=== PATIENT | male | born 1945 | race Caucasian/White ===

== ENCOUNTER 2023-04-21 18:31 | Emergency (ER) | payer MEDICARE, SELFPAY ==
--- NOTE | ~2023-04-21 | XR_ITS ---
EXAM: XR shoulder RT min 2V DATE: 04/21/2023 19:25 HISTORY: NKI, GEN PAIN . COMPARISON: None available. FINDINGS: Normal mineralization. No fracture or dislocation. No lytic or blastic lesion. Mild degene rative change at the AC joint. Moderate degenerative change of the glenohumeral joint. Significant ac romial enthesopathy. Subacromial narrowing. No erosion or periosteal change. Soft tissues within norm al limits. 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 Likely rotator cuff patholo gy. Reviewed, dictated and finalized at location K. 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 Likel y rotator cuff pathology.
[2023-04-21 18:40] VITALS: BP 120/73; PULSE 79; RESP 18; TEMP 36.6; O2SAT 98
--- NOTE | 2023-04-21 19:14 | ED.GENADULT ---
HPI - General Adult General Chief complaint: Extremity Injury, Upper Stated complaint: Right Shoulder Pain Source: patient Mode of arrival: ambulatory Limitations: no limitations History of Present Illness HPI narrative: Patient presents for evaluation of right shoulder pain. Symptom onset last night around 1999 [employer]. He cannot identify any specific injury, although he is a sanchez states that he has small injuries that occurred on a daily basis. No history of similar symptoms in the same joint. He has had a gout attack in his left ankle in the past. He was unable to determine whether the temperature in his right shoulder is greater than the left due to decreased ROM in right shoulder. He is left hand dominant. Pain is constant, aching at baseline and sharp with movement. Pain is 9/10 in severity. He is on oxycodone 15mg for chronic joint pain but only has two tablets left. He is anticoagulated on Xarelto for atrial fibrillation. He is currently trying to find a new primary care provider. There is no radicular component to his pain. Related Data Home Medications Medication Instructions Recorded Confirmed digoxin 250 mcg (0.25 mg) tablet 250 mcg PO 2XW 04/21/23 04/21/23 (Lanoxin) digoxin 250 mcg (0.25 mg) tablet 250 mcg PO 5XW 04/21/23 04/21/23 (Lanoxin) hydrochlorothiazide 25 mg tablet 25 mg PO DAILY 04/21/23 04/21/23 lisinopril 20 mg tablet 20 mg PO DAILY 04/21/23 04/21/23 rivaroxaban 20 mg tablet (Xarelto) 20 mg PO DAILY 04/21/23 04/21/23 rosuvastatin 40 mg tablet 40 mg PO DAILY 04/21/23 04/21/23 verapamil 300 mg capsule 24hr 300 mg PO QHS 04/21/23 04/21/[address],ext[address]release zolpidem 10 mg tablet 10 mg PO QHS PRN Sleep 04/21/23 04/21/23 Allergies Allergy/AdvReac Type Severity Reaction Status Date / Time acetaminophen [From Tylenol] AdvReac Intermediate Other Verified 04/21/23 18:49 Review of Systems Review of Systems: CONSTITUTIONAL: Denies fever, chills, or sweats. EYES: Denies visual changes, redness, or discharge. ENT: Denies rhinorrhea, congestion, sore throat, or otalgia. CARDIOVASCULAR: Denies chest pain, palpitations, or edema. RESPIRATORY: Denies cough or dyspnea. GASTROINTESTINAL: Denies abdominal pain, nausea, vomiting, or diarrhea. GENITOURINARY: Denies dysuria or hematuria. SKIN: Denies rash or itching. MUSCULOSKELETAL: Reports right shoulder pain. NEUROLOGIC: Denies headache, numbness, dizziness, or weakness. PSYCHIATRIC: Denies anxiety or depression. [facility] Past Medical History Medical History (Updated 04/21/23 @ 19:41 by MARIA LUZ Dunlap, ) Atrial fibrillation Gout Hyperlipidemia Hypertension Rotator cuff injury Surgical History Surgical History No pertinent past surgical history Family History Family History Mother Family history non-contributory Social History Social History Gender identity (if verbalized by the patient): Male Spiritual care concerns: No Exam Narrative: GENERAL: Well-appearing, well-nourished, and in no acute distress. HEAD: Normocephalic, atraumatic. EYES: PERRLA and EOMI. ENT: Nares clear, no rhinorrhea or epistaxis. Mucous membranes moist. Oropharynx without tonsillar hypertrophy exudate or other lesions. Bilateral TMs pearly castano nonbulging NECK: Supple. No adenopathy or masses. No carotid bruits or JVD CHEST: Clear to auscultation. No respiratory distress. No wheezes rales or rhonchi HEART: Regular rate and rhythm. No murmur heard. Normal peripheral pulses. ABDOMEN: Soft, nontender, nondistended, normal active bowel sounds. EXTREMITIES: There is tenderness in the right shoulder. Decreased active range of motion to right shoulder. There is also decreased range of motion of the right shoulder with passive range of motion. There is positive crep
== END 2023-04-21 19:45 | disposition home or self-care (01) ==
PROVIDERS: Emergency Provider Nurse Practitioner
DX: S49.91XA Unspecified injury of right shoulder and upper arm, initial encounter (principal); X58.XXXA Exposure to other specified factors, initial encounter; M10.9 Gout, unspecified; Z79.01 Long term (current) use of anticoagulants; I48.91 Unspecified atrial fibrillation; E78.5 Hyperlipidemia, unspecified; I10 Essential (primary) hypertension
CPT/HCPCS: 73030; 99213; A4565; G0463